=== PATIENT | male | born 1955 | race African-American/Black ===

== ENCOUNTER 2017-08-16 15:41 | Inpatient (IN) | payer MEDICAID, OTHER ==
[~2017-08-16] VITALS: Ht 180.3 cm; Wt 49.9 kg
[~2017-08-16 15:41] MED LIST: NKM
[2017-08-16 15:56] VITALS: BP 123/81
[2017-08-16] MEDS ORDERED: UNOBMED (15:58)
--- NOTE | 2017-08-16 15:58 | Emergency Room Report ---
History of Present Illness General Chief Complaint: Altered Level of Consciousness Source: Patient, EMS Present Illness HPI 62-year-old male brought in from the street by EMS for altered mental status. Patient can say his name however is altered and has no idea why he is here. Patient very confused had to be tachycardic. He is not complaining of anything at this time. Very limited information is able to be obtained Further history obtained by brother, mother states the patient is a chronic alcoholic who lives out of his car. States that the patient does not even drink water he only drinks alcohol. States that he was called by a friend because patient was not acting right. His baseline mental status when he is not drinking is awake alert oriented 4 Allergies: Coded Allergies: No Known Allergies (Unverified , 08/07/12) Patient History Past Medical History: see triage record Past Surgical History: none Pertinent Family History: none Reviewed Nursing Documentation: PMH: Agreed; PSxH: Agreed Review of Systems All Other Systems: negative except mentioned in HPI Physical Exam Vital Signs Date Time Temp Pulse Resp B/P (MAP) Pulse Ox O2 Delivery O2 Flow Rate FiO2 08/16/17 15:34 98.6 115 18 105/91 100 Room Air 98.6 Sp02 EP Interpretation: reviewed, normal General Appearance: mild distress, cachetic, lethargic, other Head: normocephalic, atraumatic Eyes: bilateral eye PERRL, bilateral eye other - +strabismus ENT: normal ENT inspection, normal pharynx, normal voice, moist mucus membranes Neck: normal inspection, full range of motion, supple Respiratory: normal inspection, lungs clear, normal breath sounds, no respiratory distress, no retraction, no wheezing, speaking full sentences, chest symmetrical Cardiovascular #1: normal peripheral pulses, no edema, tachycardia Cardiovascular #2: 2+ radial (R), 2+ radial (L) Gastrointestinal: normal inspection, non tender, soft, non-distended, no guarding Genitourinary: no CVA tenderness Musculoskeletal: normal inspection, back normal, normal range of motion, non- tender Neurologic: other - Oriented to person only, confused, moving all extremities spontaneously, motor strength out of 5 all extremities, no numbness no facial droop Psychiatric: other - poor memory Skin: normal inspection, normal color, no rash, warm/dry, well hydrated, normal turgor Medical Decision Making Diagnostic Impression: Primary Impression: Altered level of consciousness Additional Impressions: Renal failure Dehydration History of alcohol abuse ER Course 62-year-old male with altered mental status DDX: Sepsis versus hypovolemic/dehydration vs. cardiac arrhythmia (SVT, Afib) vs. cardiac (, ACS) vs. PE vs. metabolic (hypoglycemia, hypoxia), vs neuro ( seizure, CVA, intracranial bleed) Plan: bgm, cbc, bmp, ekg, cxr consider IVF CT head ER course: Patient given D5 half bolus 1, and then given normal saline 1 +improvement of vitals +leukocytosis without source of infection, blood cx and lactate were already drawn. no fever CT head neg for acute process after fluids tachycardia improved. pt not tremulous Disposition: Patient requires admission to telemetry. D/W hospitalist Dr Manuel Please note that this Emergency Department Report was dictated using [employer] helper technology software, occasionally this can lead to erroneous entry secondary to interpretation by the dictation equipment EKG Diagnostic Results EP Interpretation: Yes Rate: Tachycardic Rhythm: NSR ST Segments: T-wave inversions in leads 23 and aVF, V3 and V4 V5. ASA given to patient: No Rhythm Strip EP Interpretation: Yes Rate: 113 Rhythm: NSR, no PVCs, no ectopy Chest X-ray CXR: Ordered: Yes 1 view Indication: Syncope EP interpretation: Yes Interpretation: hyperinflated lungs, but no acute disease noted Impression: No acute disease Electronically signed by Deborah Leal MD Laboratory Tests Test 08/16/17 15:45 08/16/17 16:50 White Blood Count 13.7 K/UL (4.8-10.8) H Red Blood Count 4.34 M/UL (4.70-6.10) L Hemoglobin 13.5 G/DL (14.2-18.0) L Hematocrit 40.9 % (42.0-52.0) L Mean Corpuscular Volume 94 FL (80-99) Mean Corpuscular Hemoglobin 31.2 PG (27.0-31.0) H Mean Corpuscular Hemoglobin Concent 33.1 G/DL (32.0-36.0) Red Cell Distribution Width 12.6 % (11.6-14.8) Platelet Count 273 K/UL (150-450) Mean Platelet Volume 7.2 FL (6.5-10.1) Neutrophils (%) (Auto) 82.6 % (45.0-75.0) H Lymphocytes (%) (Auto) 8.5 % (20.0-45.0) L Monocytes (%) (Auto) 6.6 % (1.0-10.0) Eosinophils (%) (Auto) 0.6 % (0.0-3.0) Basophils (%) (Auto) 1.7 % (0.0-2.0) Prothrombin Time 11.8 SEC (9.30-11.50) H Prothrombin Time INR 1.1 (0.9-1.1) PTT 71 SEC (23-33) H Sodium Level 145 MMOL/L (136-145) Potassium Level 3.4 MMOL/L (3.5-5.1) L Chloride Level 114 MMOL/L (98-107) H Carbon Dioxide Level 14 MMOL/L (21-32) L Anion Gap 17 mmol/L (5-15) H Blood Urea Nitrogen 64 mg/dL (7-18) H Creatinine 2.5 MG/DL (0.55-1.30) H Estimate Glomerular Filtration Rate 32.1 mL/min (>60) Glucose Level 154 MG/DL (74-106) H Calcium Level 9.5 MG/DL (8.5-10.1) Total Bilirubin 0.5 MG/DL (0.2-1.0) Aspartate Amino Transferase (AST) 35 U/L (15-37) Alanine Aminotransferase (ALT) 48 U/L (12-78) Alkaline Phosphatase 101 U/L (46-116) Total Creatine Kinase 78 U/L (26-308) Troponin I 0.000 ng/mL (0.000-0.056) Pro-B-Type Natriuretic Peptide 188 pg/mL (0-125) H Total Protein 8.5 G/DL (6.4-8.2) H Albumin 3.9 G/DL (3.4-5.0) Globulin 4.6 g/dL Albumin/Globulin Ratio 0.8 (1.0-2.7) L Salicylates Level 1.6 ug/mL (2.8-20) L Acetaminophen Level < 2 MCG/ML (10-30) L Serum Alcohol < 3 mg/dL Arterial Blood pH 7.465 (7.350-7.450) Arterial Blood Partial Pressure CO2 21.6 mmHg (35.0-45.0) *L Arterial Blood Partial Pressure O2 111.3 mmHg (75.0-100.0) H Arterial Blood HCO3 15.2 mmol/L (22.0-26.0) L Arterial Blood Oxygen Saturation 97.3 % (92.0-98.0) Arterial Blood Base Excess -6.[address]/MRI/US Diagnostic Results CT/MRI/US Diagnostic Results : Imaging Test Ordered: ct head Impression IMPRESSION: No evidence of acute intracranial hemorrhage, mass effect or cortical edema. MRI may be obtained for more sensitive evaluation as clinically indicated. Atrophy out of proportion for age. Correlate clinically. Nonspecific periventricular hypoattenuation suggestive of chronic ischemic microvascular changes. Paranasal sinus disease. Last Vital Signs Date Time Temp Pulse Resp B/P (MAP) Pulse Ox O2 Delivery O2 Flow Rate FiO2 08/16/17 15:34 98.6 115 18 105/91 100 Room Air 98.6 Disposition: ADMITTED INPATIENT Condition: Serious Deborah Leal M.D. Aug 16, 2017 15:58
[2017-08-16 16:07] LABS: BASOPHILS % (AUTO) 1.7 % (0.0-2.0); EOSINOPHILS % (AUTO) 0.6 % (0.0-3.0); HEMATOCRIT 40.9 % (42.0-52.0); HEMOGLOBIN 13.5 G/DL (14.2-18.0); LYMPHOCYTES % (AUTO) 8.5 % (20.0-45.0); MEAN CORPUSCULAR VOLUME 94 FL (80-99); MONOCYTES % (AUTO) 6.6 % (1.0-10.0); NEUTROPHILS % (AUTO) 82.6 % (45.0-75.0); PLATELET COUNT 273 K/UL (150-450); RED BLOOD COUNT 4.34 M/UL (4.70-6.10); RED CELL DISTRIBUTION WIDTH 12.6 % (11.6-14.8); WHITE BLOOD COUNT 13.7 K/UL (4.8-10.8)
[2017-08-16 16:24] LABS: INR 1.1 (0.9-1.1)
[2017-08-16 16:29] LABS: ANION GAP 17 mmol/L (5-15); BLOOD UREA NITROGEN 64 mg/dL (7-18); CALCIUM 9.5 MG/DL (8.5-10.1); CARBON DIOXIDE 14 MMOL/L (21-32); CHLORIDE 114 MMOL/L (98-107); CREATININE 2.5 MG/DL (0.55-1.30); POTASSIUM 3.4 MMOL/L (3.5-5.1); SODIUM 145 MMOL/L (136-145)
[2017-08-16] MEDS ORDERED: D5 1/2NS 1,000 ML IV ONE (16:30)
[2017-08-16 16:40] LABS: ALANINE AMINOTRANSFERASE 48 U/L (12-78); ALBUMIN 3.9 G/DL (3.4-5.0); ALBUMIN/GLOBULIN RATIO 0.8 (1.0-2.7); ALKALINE PHOSPHATASE 101 U/L (46-116); ASPARTATE AMINO TRANSFERASE 35 U/L (15-37); BILIRUBIN,TOTAL 0.5 MG/DL (0.2-1.0); CREATINE KINASE 78 U/L (26-308)
[2017-08-16] MEDS ORDERED: LORazepam Inj 2mg/ml 1ml IV PRN (17:15)
--- NOTE | 2017-08-16 17:20 | Diagnostic Imaging Report ---
Indication: Altered mental status Technique: Continuous helical CT scanning of the head was performed utilizing automated exposure control without intravenous contrast material. Axial and coronal reconstructions were obtained. Comparison: None CT dose: Total DLP 1495.73 mGycm; CTDI vol 70.38 mGy Findings: There is no acute intracranial hemorrhage, mass effect or cortical edema. The ventricles, cisterns and sulci are prominent consistent with atrophy. Periventricular hypoattenuation is seen, a nonspecific finding. Visualized mastoid air cells clear. Mucosal thickening noted in some bilateral ethmoid air cells. No focal lesions of the bony calvarium or soft tissues of the scalp are seen. IMPRESSION: No evidence of acute intracranial hemorrhage, mass effect or cortical edema. MRI may be obtained for more sensitive evaluation as clinically indicated. Atrophy out of proportion for age. Correlate clinically. Nonspecific periventricular hypoattenuation suggestive of chronic ischemic microvascular changes. Paranasal sinus disease. The CT scanner at [facility] is accredited by the [employer] and the scans are performed using protocols designed to limit radiation exposure to as low as reasonably achievable to attain images of sufficient resolution adequate for diagnostic evaluation.
[2017-08-16] MEDS: Pantoprazole Inj IVP SCH (17:38)
[2017-08-16] MEDS ORDERED: Thiamine 100mg IVPB (Q24H) IVPB SCH ×2 (18:00)
[2017-08-16] MEDS ORDERED: Folic Acid 1 MG, Magnesium Sulfate 2,000 MG, Multivitamin - 12 Injection 10 ML in NS w/... IV SCH (18:00)
--- NOTE | 2017-08-16 18:05 | Diagnostic Imaging Report ---
Indication: Altered mental status Technique: XRAY Chest 1v Comparison: 08/07/2012 Findings: Heart size and mediastinal contours are within normal limits and stable compared to the prior exam. There is no focal consolidation, pneumothorax or pleural effusion. Osseous structures demonstrate no acute abnormality. Impression: No radiographic evidence of acute cardiopulmonary disease.
[2017-08-16 20:00] VITALS: BP 101/71
[2017-08-16 21:20] LABS: APPEARANCE,URINE CLEAR; BILIRUBIN, URINE 1+ (NEGATIVE); COLOR,URINE BROWN; GLUCOSE, URINE (UA) NEGATIVE (NEGATIVE); KETONES,URINE 1+ (NEGATIVE); LEUKOCYTE ESTERASE ,URINE 1+ (NEGATIVE); NITRITE,URINE NEGATIVE (NEGATIVE); PH,URINE 5 (4.5-8.0); PROTEIN,URINE 2+ (NEGATIVE); UROBILINOGEN,URINE 1 MG/DL (0.0-1.0)
[2017-08-16] MEDS: Piperacillin/Tazobactam 3.375 GM in D5W 110 ML IVPB SCH (21:50)
[2017-08-16] MEDS ORDERED: Piperacillin/Tazobactam 3.375 GM in NS 110 ML IVPB SCH (22:00)
[2017-08-17] VITALS: BP 106/67
[2017-08-17 04:00] VITALS: BP 96/76
[2017-08-17] MEDS: Piperacillin/Tazobactam 3.375 GM in D5W 110 ML IVPB SCH ×3 (05:23→21:11)
[2017-08-17 06:54] LABS: HEMATOCRIT 39.7 % (42.0-52.0); HEMOGLOBIN 13.1 G/DL (14.2-18.0); LYMPHOCYTES % (AUTO) 9.1 % (20.0-45.0); MEAN CORPUSCULAR VOLUME 96 FL (80-99); MONOCYTES % (AUTO) 5.6 % (1.0-10.0); NEUTROPHILS % (AUTO) 83.3 % (45.0-75.0); PLATELET COUNT 224 K/UL (150-450); RED BLOOD COUNT 4.14 M/UL (4.70-6.10); RED CELL DISTRIBUTION WIDTH 12.7 % (11.6-14.8); WHITE BLOOD COUNT 13.1 K/UL (4.8-10.8)
[2017-08-17 07:15] LABS: AMMONIA 21 umol/L (11-32)
[2017-08-17 07:36] LABS: ALANINE AMINOTRANSFERASE 48 U/L (12-78); ALBUMIN 3.6 G/DL (3.4-5.0); ALBUMIN/GLOBULIN RATIO 0.8 (1.0-2.7); ALKALINE PHOSPHATASE 90 U/L (46-116); ANION GAP 12 mmol/L (5-15); ASPARTATE AMINO TRANSFERASE 30 U/L (15-37); BILIRUBIN,TOTAL 0.5 MG/DL (0.2-1.0); BLOOD UREA NITROGEN 60 mg/dL (7-18); CARBON DIOXIDE 21 MMOL/L (21-32); CHLORIDE 117 MMOL/L (98-107); CREATININE 2.2 MG/DL (0.55-1.30); POTASSIUM 3.7 MMOL/L (3.5-5.1); SODIUM 150 MMOL/L (136-145)
[2017-08-17 08:00] VITALS: BP 125/76
[2017-08-17] MEDS: Pantoprazole Inj IVP SCH (08:33)
[2017-08-17] MEDS: Heparin 5000 units/ml inj SUBQ SCH ×2 (08:34→21:13)
[2017-08-17 12:00] VITALS: BP 105/81
--- NOTE | 2017-08-17 13:15 | History and Physical Report ---
DATE OF ADMISSION: 08/16/2017 CHIEF COMPLAINT: Dehydration and altered mental status. HISTORY OF PRESENT ILLNESS: The patient is a 62-year-old male. He has no past medical history, presented with complaints of confusion and altered mentation to the emergency room. According to family members, the patient lives in a car, it is unclear whether or not he has been taking up fluids. He does drink mostly alcohol. On evaluation in the emergency room, the patient was significantly dehydrated. He was acidotic. CT scan of the head showed only chronic disease. Chest x-ray was clear. White count was 13,000. Potassium was 3.4 with the BUN of 64 and creatinine of 2.5. The patient has been started on IV hydration and is now admitted for further evaluation and care. PAST MEDICAL HISTORY: None. PAST SURGICAL HISTORY: None. CURRENT MEDICATIONS: None. FAMILY HISTORY: None. SOCIAL HISTORY: The patient smokes and drinks normally 16-ounce beers a day. PHYSICAL EXAMINATION: GENERAL: The patient is alert and oriented to person, place, and situation. The patient is a thin male, in no apparent distress. VITAL SIGNS: Temperature is 97.5, pulse 86, respirations 20, and blood pressure 96/76. HEART: Regular rate and rhythm. LUNGS: Clear. ABDOMEN: Soft, nontender, and nondistended. EXTREMITIES: Without clubbing, cyanosis, or edema. LABORATORY DATA: White count 13, hemoglobin 13, and platelets 273. Coags normal. Sodium 145, potassium 3.4, chloride 114, carbon dioxide of 14, BUN 64, creatinine is 2.5. CK level of 78. ASSESSMENT: This is a 62-year-old male admitted with complaints of altered mentation suspect secondary to dehydration. He has acute renal failure. PLAN: IV hydration. Monitor alcohol withdrawal. Monitor temperatures. Empiric antibiotics. Follow up cultures. Jayden Manuel M.D. DR: ABDON JOB#: [id number] CC:
[2017-08-17 16:00] VITALS: BP 129/82
--- NOTE | 2017-08-17 16:22 | Cardiology Report ---
APPROVED REPORT EKG Measurement Heart [id number] Sinus tachycardia Abnormal ECG
[2017-08-17] MEDS ORDERED: Thiamine 100mg IVPB (Q24H) IVPB SCH ×2 (18:00)
[2017-08-17] MEDS ORDERED: Folic Acid 1 MG, Magnesium Sulfate 2,000 MG, Multivitamin - 12 Injection 10 ML in NS w/... IV SCH (18:00)
[2017-08-17 20:00] VITALS: BP 101/47
[2017-08-18] VITALS: BP 98/67
[2017-08-18 04:00] VITALS: BP 100/67
[2017-08-18] MEDS: Piperacillin/Tazobactam 3.375 GM in D5W 110 ML IVPB SCH ×2 (05:39→14:06)
[2017-08-18 08:00] VITALS: BP 97/65
--- NOTE | 2017-08-18 08:55 | General Progress Note ---
Assessment/Plan Problem List: (1) Dehydration ICD Codes: E86.0 - Dehydration SNOMED: 08224522 (2) Renal failure ICD Codes: N19 - Unspecified kidney failure SNOMED: 90837939 (3) History of alcohol abuse ICD Codes: Z87.898 - Personal history of other specified conditions SNOMED: 548290601 (4) Altered level of consciousness ICD Codes: R40.4 - Transient alteration of awareness SNOMED: 8328757 Status: stable Assessment/Plan cont ivf follow up labs can dc today if labs ok Subjective ROS Limited/Unobtainable: No Constitutional: Reports: malaise, weakness HEENT: Reports: no symptoms Cardiovascular: Reports: no symptoms Respiratory: Reports: no symptoms Gastrointestinal/Abdominal: Reports: no symptoms Genitourinary: Reports: no symptoms Neurologic/Psychiatric: Reports: no symptoms Endocrine: Reports: no symptoms Hematologic/Lymphatic: Reports: no symptoms Allergies: Coded Allergies: No Known Allergies (Unverified , 08/07/12) All Systems: reviewed and negative except above Subjective no events. much less confused. feels "better." Objective Last 24 Hour Vital Signs Date Time Temp Pulse Resp B/P (MAP) Pulse Ox O2 Delivery O2 Flow Rate FiO2 08/18/17 08:00 97.7 66 18 97/65 (76) 100 97.7 08/18/17 04:00 97.6 74 20 100/67 (78) 98 97.6 08/18/17 04:00 68 08/18/17 00:00 97.6 65 22 98/67 (77) 100 97.6 08/18/17 00:00 72 08/17/17 21:00 Room Air 08/17/17 20:00 97.9 87 21 101/47 (65) 98 97.9 08/17/17 20:00 81 08/17/17 16:00 98.2 81 19 129/82 (98) 97 98.2 08/17/17 16:00 83 08/17/17 12:00 98.1 90 20 105/81 (89) 99 98.1 08/17/17 12:00 81 08/17/17 09:00 Room Air Intake and Output 08/17/17 08/18/17 19:00 07:00 Intake Total 516.0 ml Output Total 0 ml Balance 516.0 ml Intake Oral 200 ml IV Total 316.0 ml Output Urine Total 0 ml # Voids 2 1 Laboratory Tests 08/18/17 06:40: Sodium Level [Pending], Potassium Level [Pending], Chloride Level [Pending], Carbon Dioxide Level [Pending], Blood Urea Nitrogen [Pending], Creatinine [ Pending], Estimat Glomerular Filtration Rate [Pending], Glucose Level [Pending] , Calcium Level [Pending], Total Bilirubin [Pending], Aspartate Amino Transf ( AST/SGOT) [Pending], Alanine Aminotransferase (ALT/SGPT) [Pending], Alkaline Phosphatase [Pending], Total Protein [Pending], Albumin [Pending], Globulin [ Pending] Height (Feet): 5 Height (Inches): 11.00 Weight (Pounds): 110 General Appearance: WD/WN, alert, thin Neck: supple Cardiovascular: normal rate, regular rhythm Respiratory/Chest: chest wall non-tender, lungs clear, normal breath sounds Abdomen: normal bowel sounds, non tender, soft Edema: no edema noted Arm (L), no edema noted Arm (R), no edema noted Leg (L), no edema noted Leg (R), no edema noted Pedal (L), no edema noted Pedal (R), no edema noted Generalized Jayden Manuel MD Aug 18, 2017 08:55
[2017-08-18 08:56] LABS: ALANINE AMINOTRANSFERASE 30 U/L (12-78); ALBUMIN 3.1 G/DL (3.4-5.0); ALBUMIN/GLOBULIN RATIO 0.8 (1.0-2.7); ALKALINE PHOSPHATASE 72 U/L (46-116); ANION GAP 11 mmol/L (5-15); ASPARTATE AMINO TRANSFERASE 24 U/L (15-37); BILIRUBIN,TOTAL 0.3 MG/DL (0.2-1.0); BLOOD UREA NITROGEN 33 mg/dL (7-18); CALCIUM 8.4 MG/DL (8.5-10.1); CARBON DIOXIDE 20 MMOL/L (21-32); CHLORIDE 117 MMOL/L (98-107); CREATININE 1.4 MG/DL (0.55-1.30); POTASSIUM 3.5 MMOL/L (3.5-5.1); SODIUM 148 MMOL/L (136-145)
[2017-08-18] MEDS: Pantoprazole Inj IVP SCH (09:19)
[2017-08-18] MEDS: Heparin 5000 units/ml inj SUBQ SCH (09:20)
[2017-08-18 12:00] VITALS: BP 109/70
[2017-08-18 16:00] VITALS: BP 101/64
--- NOTE | 2017-08-19 09:30 | Discharge Summary ---
Discharge Summary Discharge Summary _ DATE OF ADMISSION: 08/16/2017 DATE OF DISCHARGE: 08/18/2017 BRIEF HOSPITAL COURSE: Patient is a 62-year-old male, with no past medical history, presented with complaints of confusion and altered mentation. According to family members, he lives in a car and unclear whether he has not been taking enough fluids. He does drink mostly alcohol. On evaluation in the emergency room, he was found to be significantly dehydrated. He was acidotic. CT scan of the head showed chronic disease, no evidence of acute intracranial hemorrhage, mass effect or edema. Chest x-ray was negative for acute cardiopulmonary disease. Blood work showed WBC 13, potassium 3.4, BUN was elevated to 64 and creatinine was 2.5. Urinalysis with 1+ leukocyte esterase, 2-4 RBC, 2-4 WBC. Urine toxicology was negative. He was admitted for evaluation of acute renal failure and altered mentation suspect secondary to dehydration. He was admitted to telemetry. He was given banana bag, folic acid and thiamine. He was started empirically on Zosyn. Renal function was improving with IV hydration. Social service was consulted for home safety evaluation/ homelessness and ordered PT mobility. Full treatment was not carried out as he left AGAINST MEDICAL ADVICE. FINAL DIAGNOSES: Dehydration Acute renal failure Alcohol abuse Altered mentation suspect secondary to dehydration/acute metabolic encephalopathy DISPOSITION: Patient left AMA. I have been assigned to dictate discharge summary on this account, and I was not involved in the patient's management. Eloisa Babb NP Aug 19, 2017 09:30
== END 2017-08-18 16:31 | disposition left against medical advice (07) | DRG 422 ==
LOC: EDBD 15:41 → EMR 16:09 → 2E 16:20 → EDBEDREQ 16:46
DX: E86.0 Dehydration (principal); G93.41 Metabolic encephalopathy; N17.9 Acute kidney failure, unspecified; F10.10 Alcohol abuse, uncomplicated; F17.200 Nicotine dependence, unspecified, uncomplicated; Z59.0 Homelessness
CPT/HCPCS: 36415; 36600; 70450; 71045; 80053; 80307; 80329; 81003; 82140; 82550; 82803; 83605; 83880; 84484; 85025; 85610; 85730; 87040; 93005; 99285